=== PATIENT | female | born 1990 | race African-American/Black ===

== ENCOUNTER 2019-06-02 11:00 | Inpatient (IN) | payer BC, OTHER ==
[2019-08-17 09:12] VITALS: BMI 26.1
--- NOTE | 2019-08-18 08:38 | HP ---
History & Physical Update - History History: No Change (COnsent for Abdominal Myomectomy and Chromoprotubation, Explained to patient again, she will need c/section in case of future .) - Physical Physical: No Change - Assessment Assessment: No Change - Plan Plan: No Change
[2019-08-18] MEDS ORDERED: IBUPROFEN 600 MG TABLET (FP) PO PRN (08:39)
[2019-08-18] MEDS ORDERED: IBUPROFEN 800 MG/8 ML IJ IVPB PRN (08:39)
[2019-08-18] MEDS ORDERED: ONDANSETRON 4 MG/2 ML VIAL IVPUSH PRN (08:39)
--- NOTE | 2019-08-18 08:39 | OP ---
Operative Note - Note: Operative Date: 08/18/19 Pre-Operative Diagnosis: 29yo P1 with large submucosal fibroid, Menorrhagia, anemia Operation: Abdominal myomectomy Findings: 8cm Anterior fibroid, Left fallopian tube showing spill Partial filling of Right fallopian tube Surgeon: Francoise Birmingham Financial Legal Assistant: Jacques Kwon Anesthesiologist/GAS STATION OPERATOR: Jose Smith Anesthesia: General Specimens Removed: Fibroid Estimated Blood Loss (mls): 100 Drains, Volume Out (mls): 1,000 Fluid Volume Replaced (mls): 1,100 Operative Report Dictated: Yes
[2019-08-18] MEDS ORDERED: ENOXAPARIN NA (PORCINE) 40 MG/0.4 ML DISP.SYRIN SQ SCH (10:00)
[2019-08-18] MEDS ORDERED: CEFAZOLIN 2 GM in DEXTROSE 5%-WATER - 100 ML IVPB SCH (10:00)
[2019-08-18] MEDS ORDERED: CEFAZOLIN 2 GM/D5W 2 GM/50 ML ML IVPB SCH (10:01)
[2019-08-18] MEDS ORDERED: MIDAZOLAM HCL 2 MG/2 ML SINGLE DOSE VIAL ONE ×3 (10:08→12:36)
[2019-08-18] MEDS ORDERED: METHYLENE BLUE 50 MG/10 ML AMPUL ONE ×3 (10:28→14:07)
[2019-08-18] MEDS ORDERED: PROPOFOL 20 ML ONE ×2 (12:36)
[2019-08-18] MEDS ORDERED: fentaNYL CITRATE 250 MCG/5 ML VIAL ONE (12:36)
[2019-08-18] MEDS ORDERED: ROCURONIUM BROMIDE 100 MG/10 ML VIAL ONE (12:36)
[2019-08-18] MEDS ORDERED: ceFAZolin SODIUM 1 GM VIAL IVPB ONE (13:12)
[2019-08-18] MEDS ORDERED: LACTATED RINGERS SOLUTION 1,000 ML IV SCH (14:00)
[2019-08-18] MEDS ORDERED: BACITRACIN 15 GM TUBE TOPICAL OINTMENT ONE (14:28)
[2019-08-18] MEDS ORDERED: NEOSTIGMINE METHYLSULFATE 0.5 MG/ML - 10 ML MDV ONE (14:33)
[2019-08-18] MEDS ORDERED: BENZOIN/ALOE VERA/STORAX/TOLU 58 ML BOTTLE ONE (14:37)
[2019-08-18] MEDS: MEPERIDINE HCL 25 MG/ML VIAL IVPUSH ONE ×2 (15:10→19:38)
[2019-08-18] MEDS ORDERED: MEPERIDINE HCL 25 MG/ML VIAL ONE (15:12)
[2019-08-18] MEDS ORDERED: HYDROmorphone HCL CARPU-JECT 2 MG/1 ML DISP.SYRIN IVPUSH ONE (15:14)
[2019-08-18] MEDS ORDERED: IBUPROFEN 800 MG/8 ML IJ IVPB ONE (15:47)
[2019-08-18] MEDS: ELECTROLYTE-148 SOLN 1,000 ML IV SCH (16:00)
[2019-08-18] MEDS: oxyCODONE HCL 5 MG TABLET PO PRN (18:43)
[2019-08-18] MEDS: KETOROLAC TROMETHAMINE 30 MG/1 ML VIAL IM SCH (19:38)
[2019-08-19] MEDS: ELECTROLYTE-148 SOLN 1,000 ML IV SCH ×2 (00:12→09:16)
[2019-08-19] MEDS: oxyCODONE HCL 5 MG TABLET PO PRN ×3 (00:23→10:30)
[2019-08-19] MEDS: KETOROLAC TROMETHAMINE 30 MG/1 ML VIAL IM SCH ×5 (02:27→17:16)
[2019-08-19 08:22] LABS: HEMOGLOBIN 9.8 GM/dL (10.7-15.3); MCH 30.3 pg (25.7-33.7); MCHC 33.9 g/dl (32.0-36.0); MEAN CELL VOLUME 89.6 fl (80-96); MEAN PLT VOLUME 8.1 fl (7.5-11.1); PLATELET COUNT 212 K/MM3 (134-434); RBC 3.24 M/mm3 (3.60-5.2); RDW 15.4 % (11.6-15.6)
[2019-08-19] MEDS: ENOXAPARIN NA (PORCINE) 40 MG/0.4 ML DISP.SYRIN SQ SCH (09:07)
--- NOTE | 2019-08-19 10:58 | PN ---
Progress Note, Physician Chief Complaint: 29yo P1 s/p Abdominal Myomectomy, POD # 1 + flatus, ambulating - Current Medication List Current Medications: Active Medications Enoxaparin Sodium (Lovenox -) 40 mg SQ DAILY [facility] Last Admin: 08/19/19 09:07 Dose: 40 mg Documented by: Fentanyl (Sublimaze Injection -) 50 mcg IVPUSH [id number] PRN PRN Reason: PAIN-PACU ORDER X 4 DOSES ONLY Last Admin: 08/18/19 17:00 Dose: 50 mcg Documented by: Parenteral Electrolytes (Plasma-Lyte 148 -) 1,000 mls @ 125 mls/hr IV ASDIR [facility] Last Admin: 08/19/19 09:16 Dose: Not Given Documented by: Ibuprofen (Caldolor Injection -) 800 mg IVPB Q6H PRN PRN Reason: Fever - If PO not effective. Last Admin: 08/18/19 17:00 Dose: 800 mg Documented by: Ibuprofen (Motrin -) 600 mg PO Q6H PRN PRN Reason: FEVER Ketorolac Tromethamine (Toradol Injection -) 30 mg IM Q8H-IV [facility] Stop: 08/20/19 09:59 Last Admin: 08/19/19 09:16 Dose: Not Given Documented by: Ondansetron HCl (Zofran Injection) 4 mg IVPUSH Q6H PRN PRN Reason: NAUSEA Last Admin: 08/19/19 09:06 Dose: 4 mg Documented by: Oxycodone HCl (Roxicodone -) 5 mg PO Q4H PRN PRN Reason: PAIN LEVEL 6-10 Last Admin: 08/19/19 10:30 Dose: 5 mg Documented by: - Objective Vital Signs: Vital Signs Temperature 98.4 F 08/19/19 05:55 Pulse Rate 72 08/19/19 05:55 Respiratory Rate 20 08/19/19 05:55 Blood Pressure 137/75 08/19/19 05:55 O2 Sat by Pulse Oximetry (%) 100 08/18/19 21:00 Constitutional: Yes: Well Nourished, No Distress, Calm Eyes: Yes: WNL, Conjunctiva Clear HENT: Yes: WNL, Atraumatic, Normocephalic Neck: Yes: WNL, Supple, Trachea Midline Cardiovascular: Yes: WNL, Regular Rate and Rhythm Respiratory: Yes: WNL, Regular, CTA Bilaterally Gastrointestinal: Yes: WNL, Normal Bowel Sounds, Soft Genitourinary: Yes: WNL Musculoskeletal: Yes: WNL Extremities: Yes: WNL Edema: No Peripheral Pulses WNL: No Integumentary: Yes: WNL Wound/Incision: Yes: Clean/Dry, Well Approximated Neurological: Yes: WNL, Alert, Oriented ...Motor Strength: WNL Psychiatric: Yes: WNL, Alert, Oriented Labs: CBC, BMP 08/19/19 07:10 Assessment/Plan 29yo P1 POD # 1 VSS, Afebrile doing well encourage ambulation, oral hydration continue routine postop care
[2019-08-19 20:22] VITALS: PULSE 87
--- NOTE | 2019-08-19 20:47 | OP ---
DATE OF OPERATION: 08/18/2019 PREOPERATIVE DIAGNOSIS: A 29-year-old para 1 with large submucosal fibroid, menorrhagia, anemia. POSTOPERATIVE DIAGNOSIS: A 29-year-old para 1 with large submucosal fibroid, menorrhagia, anemia. OPERATION: Abdominal myomectomy. FINDINGS: An 8-cm anterior fibroid, left fallopian tube showing still on chromopertubation and partial filling of the right fallopian tube. SURGEON: Francoise Birmingham MD. WORK FORCE ADVISOR: Jacques Kwon MD. ANESTHESIOLOGIST: Jose Smith MD. ANESTHESIA: General. DESCRIPTION OF OPERATIVE PROCEDURE: After assuring informed consent, patient was brought to the operating room where she was placed in dorsal lithotomy position and general anesthesia was administered. The HUMI manipulator was placed to the cervix and a Dimas catheter was placed under sterile condition. Subsequently, the Pfannenstiel skin incision was created with the scalpel and carried down to the level of fascia with Bovie cautery, extended laterally with Bovie cautery. Subsequently, fascia was dissected off the rectus abdominis muscle with Bovie cautery inferiorly and superiorly. Rectus abdominal muscle was split in the midline. Peritoneum was identified, tented, and entered sharply with Metzenbaum scissors with good visualization of underlying bowel. Uterus was exteriorized. Normal fallopian tubes and ovaries were noted. Large anterior fibroid was noted. Then 10 mL of dilute vasopressin was injected vertically along the midline of the fibroid and vertical incision was made at the largest area of the fibroid fundally. Allis clamps were placed in each incision and fibroid was enucleated by using traction, countertraction, Bovie cautery. tenaculum was placed on the fibroid and subsequently with traction and countertraction the fibroid was removed . It was abutting the endometrium. Endometrium was dissected off the fibroid surface. Fibroid was sent for pathology. It was found measured to be 8 cm in 2 dimensions. Subsequently 2-0 Vicryl was used to repair endometrial lining and then 0 Vicryl was used to close the uterine muscle in multiple layers, and 2-0 Vicryl was used to close the serosal layer. Chromopertubation was performed and left tube showed complete spillage of the methylene blue, and right tube showed partial filling. Subsequently the uterus was removed into the abdomen, abdomen was irrigated with normal saline. The Surgicel was placed on the suture line. Excellent hemostasis was achieved. The peritoneum was closed with 2-0 Vicryl. Muscle was reapproximated with 0 Vicryl. Fascia was closed in 2 halves with 0 Vicryl. Subcutaneous space was closed with 2-0 Vicryl, and skin was closed with 4-0 Biosyn. Estimated blood loss was 100 mL. Urine output was 1000 mL. Patient received 1100 mL of IV fluids. Patient tolerated procedure well. Instrument and sponge count was correct x2. Patient was extubated and brought to the recovery room in stable condition. Federico [id number]
[2019-08-20] MEDS: oxyCODONE HCL 5 MG TABLET PO PRN (00:47)
[2019-08-20] MEDS: KETOROLAC TROMETHAMINE 30 MG/1 ML VIAL IM SCH (03:05)
[2019-08-20 06:22] VITALS: BP 118/69; TEMP 98.3
[2019-08-20] MEDS ORDERED: BISACODYL 10 MG SUPP.RECT PR ONE (08:12)
--- NOTE | 2019-08-20 08:12 | DS ---
Physical Examination Vital Signs: Vital Signs Temperature 98.3 F 08/20/19 06:00 Pulse Rate 87 08/20/19 06:00 Respiratory Rate 20 08/20/19 06:00 Blood Pressure 118/69 08/20/19 06:00 O2 Sat by Pulse Oximetry (%) 100 08/19/19 21:00 Findings/Remarks: s/p Abdominal Myomectomy Constitutional: Yes: Well Nourished, No Distress, Calm Eyes: Yes: WNL HENT: Yes: WNL, Atraumatic, Normocephalic Neck: Yes: WNL, Supple Cardiovascular: Yes: WNL, Regular Rate and Rhythm Respiratory: Yes: WNL, Regular, CTA Bilaterally Gastrointestinal: Yes: WNL, Normal Bowel Sounds, Soft Musculoskeletal: Yes: WNL Extremities: Yes: WNL Edema: No Integumentary: Yes: WNL Wound/Incision: Yes: Clean/Dry, Well Approximated Neurological: Yes: WNL, Alert, Oriented ...Motor Strength: WNL Psychiatric: Yes: WNL, Alert, Oriented Labs: CBC, BMP 08/19/19 07:10 Discharge Summary Problems reviewed: Yes Reason For Visit: FIBROIDS UTERUS Procedures: Principal: Abdominal myomectomy Hospital Course: Uncomplicated Plan of Treatment: Dr. Birmingham Manager Creative discharge instructions Physical activity Resume your normal everyday activity as tolerated no heavy lifting or exercise until seen by your surgeon. You may walk unlimited marnie of and climb stairs. You may resume driving the car when you feel safe and comfortable behind the wheel. No sexual activity as instructed by Dr. Birmingham Wound care If you have a bandage, leave it on, and keep dry for 48-72 hours. After that time discard the outer bandage. If they are tapes on the skin under the out of bandage leave them in place. They will peel off in the next 7 to 10 days. Do Not Peel them off. You may shower the day after surgery. If there are tapes present on the skin, you may shower over them. Diet There are no dietary restrictions. Eat healthy, high-fiber foods. Drink 6 to 8 glasses of liquid each day. This will assist in keeping your bowels are regular. Pain management You may take Tylenol or acetaminophen or Ibuprofen (for example, Motrin, Advil etc.) from my pain prescription medication is ordered should be taken as prescribed for moderate to severe pain. Call Dr. Birmingham for any of the following: Severe pain not relieved by medication Fever of 101 or higher Excessive bleeding or drainage on dressing Inability to urinate Call the office at [phone] for an appointment in seven days. Condition: Good - Instructions Disposition: HOME - Home Medications Comprehensive Discharge Medication List: Ambulatory Orders NK [No Known Home Medication] 08/17/19
[2019-08-20] MEDS: ENOXAPARIN NA (PORCINE) 40 MG/0.4 ML DISP.SYRIN SQ SCH (09:16)
--- NOTE | 2019-08-22 12:37 | PATH ---
Surgical Pathology Report Patient Name: KAITLIN CAN Med. Rec. #: [id number] /Age/Gender: 1990 (Age: 29) / F Account: [id number] Location: [facility] MED/SURG Taken: 08/18/2019 Received: 08/19/2019 Reported: 08/22/2019 Physicians: Francoise Birmingham M.D. 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 Electronically Signed Keaton Adam M.D. Gross Description Received in formalin labeled "myoma," is a 98 g, 7.4 x 6.0 x 4.5 cm weems, firm nodule, consistent with a fibroid. Sectioning reveals weems, firm to rubbery parenchyma with whorled architecture. No areas of hemorrhage or necrosis are identified. Mental Health Nurse sections are submitted in 4 cassettes. /08/19/2019 saudi/08/19/2019
== END 2019-08-20 11:11 | disposition home or self-care (01) | DRG 743 ==
LOC: J2C 08-18 09:22 → EDSTATUS 08-18 11:00 → J7W 08-18 18:25
PROVIDERS: ADMIT Obstetrics & Gynecology; ATTEND Obstetrics & Gynecology
PROC: 0UB90ZZ Excision of Uterus, Open Approach (ICD-10-PCS; principal; 2019-08-18 11:00)
DX: D25.0 Submucous leiomyoma of uterus (principal); N92.0 Excessive and frequent menstruation with regular cycle; D64.9 Anemia, unspecified
CPT/HCPCS: 36415; 84703; 85027; 86850; 86900; 86901; 87340; 87389; 87522; 87536; 88305-TC; 94010; 94760; Q9968